=== PATIENT | male | born 1975 | race Caucasian/White ===

== ENCOUNTER 2017-01-11 20:06 | Emergency (ER) | payer BC ==
[2017-01-11] MEDS ORDERED: IPRATROPIUM/ALBUTEROL 0.5/3 MG 3 ML AMPUL.NEB INHALATION ONE (20:30)
[2017-01-11] MEDS ORDERED: ACETAMINOPHEN 325 MG TABLET PO ONE (20:30)
[2017-01-11] MEDS ORDERED: ONDANSETRON HCL 4 MG/2 ML VIAL ONE (21:01)
--- NOTE | 2017-01-11 21:03 | RADIOLOGY REPORT ---
HISTORY: Cough and shortness of breath. COMPARISON: None available. FINDINGS: 2 views of the shoulder obtained. Low lung volumes. Bilateral perihilar and bibasilar interstitial i nfiltrates. Probable superimposed right middle and/or lower lobe infiltrate or atelectasis. No pleural effusion. No pneumothorax. Heart size upper limits of normal. Mildly prominent central pul monary vessels. Unremarkable mediastinal contour. No focal osseous abnormalities. IMPRESSION: Low lung volumes with apparent bilateral perihilar and bibasilar interstitial infiltrates and superim posed right middle lobe and/or right lower lobe infiltrate. Radiographic follow-up to resolution is advised. Final Electronic Signature: This report was electronically signed by John Clark MD, FACR on 01/11/2017 9:01 PM. tim /
[2017-01-11 21:23] LABS: BASOPHIL# 0.3 X 10^3uL (0.0-0.1); EOSINOPHILS# 0.2 X 10^3uL (0.0-0.4); HEMATOCRIT 47.6 % (42.0-54.0); HEMOGLOBIN 15.9 g/dL (14.0-18.0); LYMPHOCYTES 16.3 % (20.0-40.0); LYMPHOCYTES# 1.1 X 10^3uL (0.8-3.8); MEAN CELL VOLUME 83.1 fL (80.0-100.0); MEAN CORPUS. HGB CONCENTRATION 33.4 g/dL (32.0-36.0); MEAN CORPUSCULAR HEMOGLOBIN 27.8 pg (29.0-35.0); MEAN PLATELET VOLUME 9.4 fL (7.4-10.4); MONOCYTES 18.3 % (2.0-10.0); MONOCYTES# 1.2 X 10^3uL (0.2-1.0); NEUTROPHILS 58.4 % (54.0-75.0); NEUTROPHILS# 3.8 X 10^3uL (2.6-6.7); PLATELET COUNT 264 X 10^3uL (130-440); RED BLOOD COUNT 5.73 X 10^6uL (4.20-6.10); RED CELL DISTRIBUTION WIDTH 13.2 % (11.5-14.5); WHITE BLOOD COUNT 6.6 X 10^3uL (3.9-10.7)
[2017-01-11] MEDS ORDERED: ONDANSETRON ODT 4 MG TAB.RAPDIS ONE (21:26)
[2017-01-11 21:32] LABS: BLOOD UREA NITROGEN 9 mg/dL (9-20); CALCIUM 8.6 mg/dL (8.4-10.2); CHLORIDE 101 mmol/L (98-107); CREATININE 0.8 mg/dL (0.7-1.3); EST GLOMERULAR FILTRATION RATE > 60 mL/min; GLUCOSE 92 mg/dL (70-100); SODIUM 139 mmol/L (137-145)
[2017-01-11 21:33] LABS: POTASSIUM 4.2 mmol/L (3.5-5.1)
[2017-01-11 21:45] LABS: TROPONIN I < 0.012 ng/mL (0.00-0.034)
[2017-01-11] MEDS ORDERED: OSELTAMIVIR PHOSPHATE 75 MG CAPSULE PO ONE (21:47)
[2017-01-11] MEDS ORDERED: AZITHROMYCIN 250 MG TABLET PO ONE (22:16)
[2017-01-11] MEDS ORDERED: ALBUTEROL INHALATION ONE (22:17)
[2017-01-11] MEDS ORDERED: ONDANSETRON ODT PREPAC 4 MG TAB.RAPDIS PO ONE (22:17)
--- NOTE | 2017-01-11 23:08 | ER PHYSICIAN DOCUMENTATION ---
Physician Documentation [facility] Name:Jaden Padilla Age:41 yrs Sex:Male :1975 Arrival Date:01/11/2017 Time:20:06 Bed4 Private MD:Physician, No ED Leoncio Tello Disposition: 01/11 22:01 Critical Care: not applicable. cd 22:26 Chart complete. cd Disposition: 01/11/17 22:17 Discharged to Home/Self Care. Impression: Influenza - : Type B, Pneumonia Viral - : rule out possible Bacterial, Dehydration. - Condition is Fair. - Discharge Instructions: DEHYDRATION (6y-Adult), INFLUENZA (Adult), PNEUMONIA (Adult). - Prescriptions for Tamiflu 75 mg Oral Capsule - take 1 capsule by ORAL route every 12 hours for 5 days; 10 capsule. Zithromax Z- Jareth 250 mg Oral - take 1 tablet by ORAL route once daily for 4 days; 4 tablet. - Medical Reconciliation form form. - Follow up: Private Physician; When: 4- 6 days; Reason: Recheck today's complaints, Continuance of care. - Problem is new. - Symptoms have improved. - Notes: Take Tylenol 650mg by mouth every 6 hours with food for 2 - 3 days. Take Tamiflu 75mg by mouth every 12 hours for 5 days Take Zofran 4mg under your tongue every 6 hours as needed for nausea or vomiting Use Ventolin MDI 2 puffs every 6 hours for 2 days to keep your airways open. Drink at least 2 quarts of water or Gatorade every day to stay well hydrated. Leave this elevation as soon as possible.... No patient contact for 7 days until your symptoms go away. HPI: 20:35 This 41 yrs old Male presents to ER via Walk In with complaints of Shortness cd Of Breath. 20:35 The patient has shortness of breath with light activity, that occurred at home, and the cd patient has a history of Altitude Illness. Patient recently arrived from [place] 3 days ago to 8,000 ft elevation here in [place]. He has been drinking plenty of water and was doing fine until 10:00 Am this morning when he started feeling short of breath. He has also had a headache, a dry cough and weakness. He denies sputum production, hemoptysis or heavy / pressure like chest pain. He does report pleuritic pain over his right chest. He travelled from [place] by car three days ago. He denies calf tenderness or swelling. 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 Onset: The symptom(s)/episode began/occurred suddenly, 10 hour(s) ago, at 10:00. Duration: The symptoms are continuous, and are steadily getting worse. Associated signs and symptoms: Pertinent positives: chest pain, non-productive cough, Pertinent negatives: productive cough, diaphoresis, fever, hemoptysis, nausea, numbness in extremities, vomiting. Severity of symptoms: At their worst the symptoms were moderate in the emergency department the symptoms are unchanged. Risk Factors Risk factors for coronary artery disease include: A family history of coronary artery disease. A history of high cholesterol. A history of hypertension. possibly has had High Altitude Illness in the past. His has similar symptoms and works in the hospital in [place] around a lot of patients with Influenza.. Historical: - Allergies: No known drug Allergies; - Home Meds: 1. Synthroid 125 mcg oral tab 1 tab once daily 2. Protonix 40 mg oral TbEC 1 tab once daily 3. Zocor 40 mg oral tab 4. citalopram 20 mg oral tab 1 tab once daily 5. aspirin 325 mg oral tab 1 tab once daily - PMHx: HYPOTHYROIDISM; hyperlipidemia; - PSHx: HERNIA REPAIR; - Tetanus: unknown. - Ebola Screening: : Patient denies exposure to infectious person. Patient denies travel to an Ebola-affected area in the 21 days before illness onset. . - Immunization history: Flu Vaccine None Flu Vaccine None Flu Vaccine None Pneumococcal vaccine is not up to date. - Social history: Smoking status: Patient states was never smoker of tobacco. Patient/guardian denies using alcohol. - Code Status:: Full code. ROS: 20:56 ENT: Negative for injury, pain, epistaxis and discharge. cd 20:56 Neck: Negative for injury, pain, stiffness and swelling. cd Back: Negative for injury, pain or muscle spasms. : Negative for injury, bleeding, discharge, swelling, dysuria, frequency or urgency. MS/Extremity: Negative for injury, deformity, edema, calf tenderness, pain or coldness. Skin: Negative for injury, rash, itching and discoloration. 20:56 Neuro: Negative for headache, weakness, numbness, tingling, and seizure. 20:56 Constitutional: Positive for malaise, Negative for chills, fever, poor PO intake. 20:56 Cardiovascular: Positive for chest pain, with cough, Negative for edema, orthopnea, palpitations. 20:56 Respiratory: Positive for cough, with no reported sputum, dyspnea on exertion, pleurisy, shortness of breath, Negative for hemoptysis, orthopnea, wheezing. 20:56 Abdomen/GI: Positive for nausea, anorexia, Negative for abdominal pain, vomiting, diarrhea, constipation. 20:56 All other systems are negative. Exam: Eyes: Pupils equal round and reactive to light, extra-ocular motions intact. Lids and lashes normal. Conjunctiva and sclera are non-icteric and not injected. Cornea within normal limits. Periorbital areas with no swelling, redness, or edema. ENT: Nares patent. No nasal discharge, no septal abnormalities noted. Tympanic membranes are normal and external auditory canals are clear. Oropharynx with no redness, swelling, or masses, exudates, or evidence of obstruction, uvula midline. Mucous membranes dry Neck: Trachea midline, no thyromegaly or masses palpated, and no cervical lymphadenopathy. Supple, full range of motion without nuchal rigidity, or vertebral point tenderness. No Meningismus. Chest/axilla: Normal chest wall appearance and motion. Nontender with no deformity. No lesions are appreciated. Abdomen/GI: Soft, non-tender, with normal bowel sounds. No distension or tympany. No guarding or rebound. No evidence of tenderness throughout. Back: No spinal tenderness. No costovertebral tenderness. Full range of motion. Skin: Warm, dry with normal turgor. Normal color with no rashes, no lesions, and no evidence of cellulitis. MS/ Extremity: Pulses equal, no cyanosis. Neurovascular intact. Full, normal range of motion. 20:57 Neuro: Awake and alert, GCS 15, oriented to person, place, time, and situation. cd Cranial nerves II-XII grossly intact. Motor strength 5/5 in all extremities. Sensory grossly intact. Cerebellar exam normal. Normal gait. 20:57 Constitutional: The patient appears alert, awake, non-diaphoretic, non-toxic, well developed, well nourished, anxious, obese. 20:57 Cardiovascular: Rate: tachycardic, Rhythm: regular, Pulses: no pulse deficits are appreciated, Heart sounds: normal, Edema: is not appreciated, JVD: is not appreciated. 20:57 Respiratory: the patient does not display signs of respiratory distress, Respirations: normal, no acute changes, accessory muscle usage, is absent, intercostal retractions, are absent, shallow respirations, that is mild, Breath sounds: rales, are not appreciated, rhonchi, are not appreciated, wheezing, is not appreciated, decreased breath sounds, that are moderate, are heard in the right posterior middle lobe and right posterior lower lobe. 20:57 Musculoskeletal/extremity: DVT Exam: No signs of deep vein thrombosis. no pain, no swelling, no tenderness, negative Homans' sign noted on exam, no appreciated bluish discoloration, no erythema, no increased warmth. Vital Signs: 20:13 BP 178 / 105; Pulse 110; Resp 18; Temp 98.7; Pulse Ox 94% on R/A; Weight 113.4 kg; lb Height 5 ft. 11 in. (180.34 cm); Pain 0/10; 21:39 BP 126 / 83; Pulse 101; Resp 20; Pulse Ox 97% on 2 lpm NC; lb 22:43 BP 141 / 85; Pulse 100; Resp 16; Pulse Ox 93% ; lb 23:06 BP 140 / 60; Pulse 99; Resp 18; Pulse Ox 93% on R/A; lb 20:13 Body Mass Index 34.87 (113.40 kg, 180.34 cm) lb Gee Coma Score: 20:57 Eye Response: spontaneous(4). Verbal Response: oriented(5). Motor Response: obeys cd commands(6). Total: 15. MDM: 20:37 Patient medically screened. cd 20:40 Data interpreted: Pulse oximetry: on room air is 92 %. Interpretation: acceptable. cd 21:00 Antibiotic administration: Not indicated, the patient does not have an appreciated cd infiltrate. 21:02 Differential diagnosis: asthma, Bronchitis Myocardial Infarction pneumonia, pulmonary cd edema, Pulmonary Embolism Unstable Angina Altitude Illness. 21:05 Data reviewed: vital signs, nurses notes, old medical records, radiologic studies, cd plain films, and as a result, I will continue to observe the patient, administer IV fluids, NS bolus, NS maintenence, Give a Sissy. 21:22 ECG:. cd 22:24 Counseling: I had a detailed discussion with the patient and/or guardian regarding: the cd historical points, exam findings, and any diagnostic results supporting the discharge/admit diagnosis, lab results, radiology results, the need for outpatient follow up, for a recheck, with the patient's primary care provider, to return to the emergency department if symptoms worsen or persist or if there are any questions or concerns that arise at home. 22:25 Response to treatment: the patient's symptoms have markedly improved after treatment, cd the patient's condition has returned to base line, patient is well hydrated. and as a result, I will discharge patient. 23:09 EKG attached lb 01/11 21:27 Order name: INFLUENZA A/B; Complete Time: 21:29 EDMS 01/11 21:28 Order name: CBC AUTO DIF, MDIF/RMOR IF IND; Complete Time: 21:55 EDMS 01/11 21:29 Interpretation: Normal. cd 01/11 21:34 Order name: BASIC METABOLIC PANEL; Complete Time: 21:55 EDMS 01/11 21:50 Interpretation: Normal. cd 01/11 21:45 Order name: TROPONIN I; Complete Time: 21:55 EDMS 01/11 21:50 Interpretation: Normal. cd 01/11 21:53 Order name: DDIMER; Complete Time: 21:55 EDMS 01/11 21:55 Interpretation: Abnormal: DDIMER 308; Mildly Elevated, but not greater than 10x cd patient's age. 01/11 21:05 Order name: CXR 2V [id number]; Complete Time: 21:21 EDMS 01/11 22:27 Interpretation: Abnormal: See Report, Perihilar and bibasilar infiltrates. RLL cd atalectasis. 01/11 20:38 Order name: EKG - 12 Lead; Complete Time: 21:11 cd 01/11 20:56 Order name: Pulse Ox Continuous; Complete Time: 21:33 cd 01/11 20:56 Order name: Cardiac Monitoring - Continuous; Complete Time: 21:33 cd 01/11 21:21 Order name: Oxygen; Complete Time: 21:34 cd EC:03 Rate is 114 beats/min. Rhythm is regular. Left axis deviation noted. QRS is negative in cd leads III, aVF. OK interval is normal. QRS interval is normal. QT interval is normal. No Q waves. T waves are Normal. ST Segment is elevated in lead aVL, <1mm. Clinical impression: ST at 114/minute, LAD, LAFB, Late R-wave progression, Minimal ST elevation in aVL only. Interpreted by me. Dispensed Medications: Completed: NS 0.9% 1000 ml IV at bolus once 20:24 Drug: Tylenol 975 mg; Route: PO; lb 20:24 Drug: DuoNeb (Albuterol 2.5 mg, Atrovent 0.5 mg); 3 ml; Route: Nebulizer; lb 23:17 Follow up: Response: Marked relief of symptoms lb 21:15 CANCELLED (Physician Discretion): Zofran 4 mg IVP once over 2 mins cd 21:33 Drug: NS 0.9% 500 ml; Route: IV; Rate: bolus; Site: right forearm; lb 22:14 Follow up: IV Status: Completed infusion; IV Intake: 1000ml lb 21:34 Drug: Zofran 4 mg; Route: PO; lb 21:46 Follow up: Response: Nausea is decreased lb 21:34 Drug: Zofran 4 mg; Route: IVP; Infused Over: 2 mins; Site: right forearm; lb 21:46 Follow up: Response: Nausea is decreased lb 21:45 Drug: Tamiflu 75 mg; Route: PO; lb 21:46 Follow up: Response: No adverse reaction lb 21:45 Drug: Tamiflu 75 mg; Route: PO; lb 21:46 Follow up: Response: Pharmacy closed - take home med pack lb 22:13 Drug: Zithromax 500 mg; Route: PO; lb 22:14 Follow up: Response: No adverse reaction lb 22:13 Drug: Zofran 1 tablet; Route: PO; lb 22:13 Follow up: Response: Pharmacy closed - take home med pack lb 22:13 Drug: Ventolin MDI 2 puffs; Route: Inhalation; lb 22:13 Follow up: Response: Pharmacy closed - take home med pack lb 22:14 Drug: NS 0.9% 1000 ml; Route: IV; Rate: bolus; Site: right forearm; lb 23:06 Follow up: IV Status: Completed infusion; IV Intake: 1000ml lb Signatures: Leoncio Song MD MD cd Bollock, Lynda lb
--- NOTE | 2017-01-11 23:08 | ER NURSING DOCUMENTATION ---
Nurse's Notes [facility] Name:Jaden Padilla Age:41 yrs Sex:Male :1975 Arrival Date:01/11/2017 Time:20:06 Bed4 Private MD:Physician, No Diagnosis:Influenza-: Type B;Pneumonia Viral-: rule out possible Bacterial;Dehydration Presentation: 01/11 20:08 Presenting complaint: Patient states: short of breath, headache, general weakness lb today. Transition of care: Home. 20:08 Acuity: MARIA DEL CARMEN 3 lb 20:08 Method Of Arrival: Walk In lb Triage Assessment: 20:12 General: Appears in no apparent distress, Behavior is pleasant. Pain: Denies pain. lb Respiratory: No deficits noted. Airway is patent Trachea midline Respiratory effort is even, unlabored, Breath sounds are diminished in right posterior middle lobe and right posterior lower lobe Reports shortness of breath cough that is non-productive, Onset: The symptoms/episode began/occurred gradually, the patient has moderate shortness of breath. Historical: - Allergies: No known drug Allergies; - Home Meds: 1. Synthroid 125 mcg oral tab 1 tab once daily 2. Protonix 40 mg oral TbEC 1 tab once daily 3. Zocor 40 mg oral tab 4. citalopram 20 mg oral tab 1 tab once daily 5. aspirin 325 mg oral tab 1 tab once daily - PMHx: HYPOTHYROIDISM; hyperlipidemia; - PSHx: HERNIA REPAIR; - Tetanus: unknown. - Ebola Screening: : Patient denies exposure to infectious person. Patient denies travel to an Ebola-affected area in the 21 days before illness onset. . - Immunization history: Flu Vaccine None Flu Vaccine None Flu Vaccine None Pneumococcal vaccine is not up to date. - Social history: Smoking status: Patient states was never smoker of tobacco. Patient/guardian denies using alcohol. - Code Status:: Full code. Screenin:14 Infectious Disease Risk None. Abuse screen: Denies threats or abuse. Denies injuries lb from another. Nutritional screening: No deficits noted. Assessment: 20:14 Cardiovascular: No deficits noted. lb 21:13 Cardiovascular: Rhythm is sinus tachycardia. lb 21:45 Reassessment: pt became pale, clammy, lightheaded during blood draw. placed in lb trendelenberg with wet cloth to forehead. iv fluids started. pt color improved quickly. pt states he feels improved. will monitor. Vital Signs: 20:13 BP 178 / 105; Pulse 110; Resp 18; Temp 98.7; Pulse Ox 94% on R/A; Weight 113.4 kg; lb Height 5 ft. 11 in. (180.34 cm); Pain 0/10; 21:39 BP 126 / 83; Pulse 101; Resp 20; Pulse Ox 97% on 2 lpm NC; lb 22:43 BP 141 / 85; Pulse 100; Resp 16; Pulse Ox 93% ; lb 23:06 BP 140 / 60; Pulse 99; Resp 18; Pulse Ox 93% on R/A; lb 20:13 Body Mass Index 34.87 (113.40 kg, 180.34 cm) lb Gee Coma Score: 20:57 Eye Response: spontaneous(4). Verbal Response: oriented(5). Motor Response: obeys cd commands(6). Total: 15. ED Course: 20:07 Patient arrived in ED. em2 20:07 Physician, No is Private Physician. em2 20:08 Naya Mcdaniel is Primary Nurse. lb 20:10 Triage completed. lb 20:14 Valuables Remains with patient. lb 20:37 Leoncio Song MD is Attending Physician. cd 20:47 Patient moved to radiology. tt 20:47 Patient moved back from radiology. tt 21:01 EKG done. (by ED staff). em1 21:11 EKG done per protocol. Performed by ED Staff. Shown to ED physician. lb 23:09 EKG attached lb Administered Medications: Completed: NS 0.9% 1000 ml IV at bolus once 20:24 Drug: Tylenol 975 mg; Route: PO; lb 20:24 Drug: DuoNeb (Albuterol 2.5 mg, Atrovent 0.5 mg); 3 ml; Route: Nebulizer; lb 23:17 Follow up: Response: Marked relief of symptoms lb 21:15 CANCELLED (Physician Discretion): Zofran 4 mg IVP once over 2 mins cd 21:33 Drug: NS 0.9% 500 ml; Route: IV; Rate: bolus; Site: right forearm; lb 22:14 Follow up: IV Status: Completed infusion; IV Intake: 1000ml lb 21:34 Drug: Zofran 4 mg; Route: PO; lb 21:46 Follow up: Response: Nausea is decreased lb 21:34 Drug: Zofran 4 mg; Route: IVP; Infused Over: 2 mins; Site: right forearm; lb 21:46 Follow up: Response: Nausea is decreased lb 21:45 Drug: Tamiflu 75 mg; Route: PO; lb 21:46 Follow up: Response: No adverse reaction lb 21:45 Drug: Tamiflu 75 mg; Route: PO; lb 21:46 Follow up: Response: Pharmacy closed - take home med pack lb 22:13 Drug: Zithromax 500 mg; Route: PO; lb 22:14 Follow up: Response: No adverse reaction lb 22:13 Drug: Zofran 1 tablet; Route: PO; lb 22:13 Follow up: Response: Pharmacy closed - take home med pack lb 22:13 Drug: Ventolin MDI 2 puffs; Route: Inhalation; lb 22:13 Follow up: Response: Pharmacy closed - take home med pack lb 22:14 Drug: NS 0.9% 1000 ml; Route: IV; Rate: bolus; Site: right forearm; lb 23:06 Follow up: IV Status: Completed infusion; IV Intake: 1000ml lb Intake: 22:14 IV: 1000ml; Total: 1000ml. lb 23:06 IV: 1000ml; Total: 2000ml. lb Outcome: 22:17 Discharge ordered by . link 23:06 Discharged to home ambulatory. lb 23:06 Condition: stable 23:06 Discharge Assessment: Patient awake, alert and oriented x 3. No cognitive and/or functional deficits noted. Patient verbalized understanding of disposition instructions. 23:06 Instructed on discharge instructions, follow up and referral plans. 23:06 IV D/Jin 23:07 Patient left the ED. lb Signatures: Leoncio Song MD MD cd Terriere, Tracy tt SwogondBMEDx-tech, [place] em1 [place]-reg, [place] em2 Naya Mcdaniel lb
== END 2017-01-11 23:08 | disposition home or self-care (01) ==
LOC: ER 20:06
DX: J11.1 Influenza due to unidentified influenza virus with other respiratory manifestations (principal); J12.9 Viral pneumonia, unspecified; E86.0 Dehydration; R00.0 Tachycardia, unspecified; I10 Essential (primary) hypertension; E78.5 Hyperlipidemia, unspecified; Z79.899 Other long term (current) drug therapy; Z79.82 Long term (current) use of aspirin; Z82.49 Family history of ischemic heart disease and other diseases of the circulatory system
CPT/HCPCS: 71020; 80048; 84484; 85025; 85379; 87449; 93005; 94640; 96361; 96374; 99284; J2405; J7620; Q0144